=== PATIENT | male | born 1990 | race Caucasian/White ===

== ENCOUNTER 2016-11-09 17:04 | Emergency (ER) | payer OTHER ==
[2016-11-09 17:59] VITALS: BP 130/61; PULSE 98; RESP 16; TEMP 98.1
--- NOTE | 2016-11-09 18:16 | XR ---
EXAMINATION TYPE: XR ankle complete LT DATE OF EXAM: 11/09/2016 5:57 PM COMPARISON: 03/29/2012 HISTORY: Pain and swelling TECHNIQUE: 3 views FINDINGS: There is soft tissue swelling over the lateral malleolus. Ankle mortise is anatomic. I see no fracture. IMPRESSION: Soft tissue swelling. No fracture seen. Soft tissue swelling is new compared to old exam.
--- NOTE | 2016-11-09 18:17 | ED ---
Lower Extremity Injury HPI - General Chief Complaint: Extremity Injury, Lower Stated Complaint: ankle pain Time Seen by Provider: 11/09/16 17:23 Source: patient, RN notes reviewed Mode of arrival: ambulatory Limitations: no limitations - History of Present Illness Initial Comments: 26-year-old male male presents emergency Department chief complaint left ankle injury. Patient states that he twisted his ankle. Patient complains of left ankle pain no other injuries no head injury no LOC. Patient states it swollen, bruised. - Related Data Home Medications Medication Instructions Recorded Confirmed Naproxen Sodium [Aleve] 440 mg PO BID PRN 11/09/16 11/09/16 Previous Rx's Medication Instructions Recorded Acetaminophen-Codeine 300-30mg 1 tab PO Q4H PRN #20 tablet 11/09/16 [Tylenol #3] Allergies Allergy/AdvReac Type Severity Reaction Status Date / Time Penicillins Allergy Unknown Verified 11/09/16 17:26 Review of Systems ROS Statement: Those systems with pertinent positive or pertinent negative responses have been documented in the HPI. ROS Other: All systems not noted in ROS Statement are negative. Past Medical History Past Medical History: No Reported History History of Any Multi-Drug Resistant Organisms: None Reported Past Surgical History: No Surgical Hx Reported Past Psychological History: No Psychological Hx Reported Smoking Status: Never smoker Past Alcohol Use History: Occasional Past Drug Use History: None Reported General Exam Limitations: no limitations General appearance: alert, in no apparent distress Head exam: Present: atraumatic, normocephalic, normal inspection Respiratory exam: Present: normal lung sounds bilaterally. Absent: respiratory distress, wheezes, rales, rhonchi, stridor Cardiovascular Exam: Present: regular rate, normal rhythm, normal heart sounds. Absent: systolic murmur, diastolic murmur, rubs, gallop, clicks Extremities exam: Present: other (Left ankle tenderness palpation medial and lateral malleolus moderate swelling neurovascular intact with capillary refill less than 2 seconds no tenderness of the foot no tenderness proximal to the ankle) Course Vital Signs 11/09/16 11/09/16 17:07 17:56 Temperature 98.2 F 98.1 F Pulse Rate 106 H 98 Respiratory 18 16 Rate Blood Pressure 125/69 130/61 O2 Sat by Pulse 98 96 Oximetry Medical Decision Making - Medical Decision Making Procedural male presented for left ankle injury. Patient's x-ray showed no acute fracture. Patient will be discharged with brace, pain medications. Disposition Clinical Impression: Left ankle sprain Disposition: HOME SELF-CARE Condition: Stable Instructions: Ankle Sprain (ED) Additional Instructions: Please return to the Emergency Department if symptoms worsen or any other concerns. Prescriptions: Acetaminophen-Codeine 300-30mg [Tylenol #3] 1 tab PO Q4H PRN #20 tablet PRN Reason: pain Referrals: None,Stated [Primary Care Provider] - 1-2 days Grady Rodriguez MD [STAFF PHYSICIAN] - 1-2 days Time of Disposition: 18:19
== END 2016-11-09 18:28 | disposition home or self-care (01) ==
LOC: EC 17:04
DX: S93.402A Sprain of unspecified ligament of left ankle, initial encounter (principal); Z88.0 Allergy status to penicillin; X50.1XXA Overexertion from prolonged static or awkward postures, initial encounter
CPT/HCPCS: 99283